=== PATIENT | female | born 1970 | race Two or more races ===

== ENCOUNTER 2019-05-28 10:38 | Emergency (ER) | payer SELFPAY ==
[~2019-05-28] VITALS: Ht 160 cm; Wt 71.0 kg
[2019-05-28 12:09] LABS: CLARITY URINE TURBID (CLEAR); COLOR URINE DARK YELLOW (YELLOW); KETONES URINE NEGATIVE (NEGATIVE); LEUKOCYTE ESTERASE URINE 2+ (NEGATIVE); NITRITE URINE NEGATIVE (NEGATIVE); OCCULT BLOOD URINE 2+ (NEGATIVE); PH URINE 5.5 (4.5-8.0); PROTEIN URINE 2+ (NEGATIVE); SPECIFIC GRAVITY URINE 1.026 (1.005-1.030)
[2019-05-28] MEDS ORDERED: SODIUM CHLORIDE 0.9% 1000ML BAG (SEPSIS BOLUS) IV ONE (12:15)
[2019-05-28] MEDS ORDERED: CEFTRIAXONE SODIUM 250 MG/VIAL IM ONE (12:15)
[2019-05-28] MEDS ORDERED: FLUCONAZOLE 100MG TABLET PO ONE (12:15)
[2019-05-28] MEDS ORDERED: AZITHROMYCIN 500 MG TABLET PO ONE (12:15)
[2019-05-28] MEDS ORDERED: LIDOCAINE HCL 1% 20ML VIAL (Pyxis) INJ INFIL ONE (12:45)
[2019-05-28 13:00] VITALS: BP 119/48
[2019-05-31 04:07] LABS: CHLAMYDIA TRACHOMATIS NAA Positive (Negative); NEISSERIA GONORRHOEAE NAA Positive (Negative)
== END 2019-05-28 14:55 | disposition home or self-care (01) ==
LOC: ER 10:38
DX: B00.9 Herpesviral infection, unspecified (principal); E11.9 Type 2 diabetes mellitus without complications; I10 Essential (primary) hypertension; R31.9 Hematuria, unspecified; Z90.49 Acquired absence of other specified parts of digestive tract; Z98.890 Other specified postprocedural states
CPT/HCPCS: 81003; 87077; 87086; 87186; 87252; 87491; 87591; 96372; 99283; J0696; J3490; J7030; Z7610